=== PATIENT | male | born 1975 | race Caucasian/White ===

== ENCOUNTER 2017-09-01 17:54 | Emergency (ER) | payer OTHER ==
[~2017-09-01] VITALS: Ht 175.3 cm; Wt 70.3 kg
[2017-09-01] MEDS ORDERED: FLORASTOR250 MG PO (18:44)
[2017-09-01] MEDS ORDERED: CLARITIN10 MG PO (18:44)
[2017-09-01] MEDS ORDERED: PROPECIA1 MG PO (18:45)
[2017-09-01 19:18] LABS: HEMATOCRIT 37.4 % (42.0-52.0); MCH 29.1 pg (26.0-34.0); MCHC 34.7 g/dL (28.0-37.0); MCV 83.8 fL (80.0-100.0); PLATELET COUNT 127 thou/uL (150-400); RBC 4.46 mil/uL (4.50-6.00); RDW 12.5 % (10.5-14.5); WBC 5.1 thou/uL (4.0-11.0)
[2017-09-01 19:20] LABS: MANUAL DIFF YES
[2017-09-01 19:22] LABS: CALCIUM 8.7 mg/dL (8.5-10.1); CREATININE 0.9 mg/dL (0.7-1.3); POTASSIUM 3.7 mmol/L (3.5-5.1)
[2017-09-01 19:47] LABS: ABSOLUTE NEUTROPHILS 2.7 thou/uL (1.4-8.2); ANISOCYTOSIS 1+; TOTAL CELL COUNT 100
[2017-09-01 20:30] VITALS: BP 107/64
== END 2017-09-01 20:35 | disposition home or self-care (01) ==
LOC: ER 17:54
PROVIDERS: Nurse Practitioner
DX: J11.1 Influenza due to unidentified influenza virus with other respiratory manifestations (principal); F10.99 Alcohol use, unspecified with unspecified alcohol-induced disorder; Z88.1 Allergy status to other antibiotic agents